=== PATIENT | female | born 1960 | race Caucasian/White ===

== ENCOUNTER 2017-04-03 16:43 | Inpatient (IN) | payer SELFPAY ==
--- NOTE | ~2017-04-03 | HP ---
History And Physical [id number] [place]. [address] NAME: MICKEY SHIN : 64 STATUS : ADM IN [facility]#: [id number] AGE: 56 ADM/REG DATE : 04/03/17 MR#: [id number] REPORT SERV DATE: 04/04/17 DICTATED BY: CLAY HOLT DATE: 04/03/17 REPORT STATUS : Draft TRANSCRIBED BY: YUNG DATE: 04/03/17 DATE OF ADMISSION: 04/03/2017 The patient's primary care is Hema Evans; dental laboratory assistant, Dr. Marquez. HISTORY OF PRESENT ILLNESS: This is a 56-year-old female with a history of CAD and strong family history of strokes and heart disease and also a personal history of smoking that has come in with a two-week history of intermittent chest pain and then yesterday evening began feeling ill having myalgias and arthralgias and fatigue, laid on the couch, and then about 10 o'clock in the evening broke into a sweat. She became diaphoretic and short of breath. Also, mentioned and was experiencing chest tightness and went to bed around 11 o'clock still having some chest tightness and diaphoresis. Noticed that her left foot was numb. When she awoke this morning, she noticed the left side of her face was numb along with the left foot and then when she walked into the restroom and looked herself in the mirror she noticed left facial droop. She had about five to six of these episodes and they lasted about 15 to 20 minutes each. Here in the emergency room, symptoms have mostly resolved except for some disorganized and delayed cognition. She has already had a CT of the brain which is negative for any infarct or hemorrhage. She has also had an EKG performed which showed no signs of ischemia and troponin is negative here as well. Neurology, Rosemary Oneill, has already seen the patient here in the emergency room. Here in the emergency room, she was administered a nitroglycerin paste and Solu-Medrol 125 mg x1. PAST MEDICAL HISTORY: [place]; CAD, stents x2; COPD, tobacco abuse; hypertension; hypothyroid; IBS; and GERD. PAST SURGICAL HISTORY: Cardiac stents, total hysterectomy, bladder suspension, cholecystectomy, tubal ligation, and carpal tunnel release. HOME MEDICATIONS: Synthroid, Lopressor, Norvasc, losartan and HCTZ, Topamax, aspirin, Ultram, potassium chloride, Prilosec, Zantac, Benadryl, Zyrtec, ibuprofen, and Tylenol. SOCIAL HISTORY: The patient is single. Three children, smoker, smokes about half a pack per day. 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 No alcohol use. No illicit drug use. FAMILY HISTORY: Mother of CVA at age 79. Sisters had TIAs. Father at age 49 of a heart attack. REVIEW OF SYSTEMS: 14-point system reviewed with the patient and was all systems negative except for what was previously mentioned. PHYSICAL EXAMINATION: VITAL SIGNS: Blood pressure 117/65, heart rate 69, respirations 18, O2 sats 96% on room air. GENERAL: The patient is a little disheveled and disorganized, but in no acute distress. NEURO: Alert and oriented x3. 3/5 strength to left lower extremity. No facial droop noted. No slurred speech noted. A little bit of delay in her cognition and memory. She has History And Physical [address] [address] NAME: MICKEY SHIN : 64 STATUS : ADM IN [facility]#: [id number] AGE: 56 ADM/REG DATE : 04/03/17 MR#: [id number] REPORT SERV DATE: 04/04/17 DICTATED BY: CLAY HOLT DATE: 04/03/17 REPORT STATUS : Draft TRANSCRIBED BY: YUNG DATE: 04/03/17 altered sensation all as well to the left upper extremity and left lower extremity. CARDIOVASCULAR: Regular rate and rhythm. No murmurs auscultated. LUNGS: Clear to auscultation bilaterally. ABDOMEN: Soft, nontender. Active bowel sounds. EXTREMITIES: No edema. LABORATORY DATA: Sodium 143, potassium 3.3, chloride 109, CO2 of 25, BUN 28, creatinine 1.12, glucose 89. White blood cells 5.4, hemoglobin 12.0, hematocrit 34.2, platelets 210. Troponin less than 0.02. EKG: Normal sinus rhythm. No ST changes. UA within normal limits. Chest x-ray, stable apical bullae. No acute findings. CT of the brain, no infarct or hemorrhage seen. ASSESSMENT AND PLAN: 1. Transient ischemic attack versus cerebrovascular accident. Neurology has already seen the patient and has ordered MRI of the brain, MRA of the neck, carotid ultrasound, and echocardiogram with bubble study. Aspirin, statin, and Plavix. 2. Chest pain. The patient has had intermittent chest pain x2 weeks. Has a history of coronary artery disease with stents and is seen by Dr. Marquez, outpatient. We will order serial troponins and EKG and consult Dr. Marquez. 3. Hypokalemia. Potassium is 3.3. We will replace per protocol. 4. Tobacco abuse. Nicotine patch. Spent 50 minutes discussing smoking cessation. 5. Hypothyroid. Continue home Synthroid. 6. Hypertension. Blood pressures are currently okay. Hold ARB and HCTZ. Continue home beta lexie and Norvasc. 7. Chronic obstructive pulmonary disease. The patient on no home medications for chronic obstructive pulmonary disease. We will place the patient on bronchodilator protocol. 8. Gastroesophageal reflux disease. Continue home proton pump inhibitor. TDR/MODL Clay Holt APN / [id number] CC: Kolton Mckeon M.D. TORO EVANS II, YONY, [facility] Jayson Marquez M.D.
--- NOTE | ~2017-04-03 | CN ---
Consultation Report [facility] [address] [place]. [address] NAME: MICKEY SHIN : 64 STATUS : ADM IN [facility]#: [id number] AGE: 56 ADM/REG DATE : 04/03/17 MR#: [id number] REPORT SERV DATE: 04/04/17 DICTATED BY: NOEMY TIM DATE: 04/03/17 REPORT STATUS : Draft TRANSCRIBED BY: YUNG DATE: 04/03/17 CARDIOLOGY CONSULTATION NOTE DATE OF CONSULTATION: 04/03/2017 HISTORY OF PRESENT ILLNESS: This 56-year-old white female smoker was admitted with left- sided weakness, which has gradually improved today. Workup for stroke was in progress. She also complains of episodes of chest pain lasting hours at a time, but her troponin and EKG are both normal today. 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 FAMILY HISTORY: Positive for heart disease. She lives with a boyfriend and has three children, one of which has had bypass grafting. She is intolerant to NGUYỄN inhibitors. PREVIOUS OPERATIONS: Include bladder surgery, cholecystectomy, carpal tunnel surgery, intracoronary stenting, hysterectomy, and a bilateral tubal ligation. She unfortunately does smoke with a history of COPD and also has GERD episodes. LABORATORY DATA: So far include a BUN of 28 and creatinine 1.12. Troponin is less than 0.02. White blood cell count 5.4 thousand, hematocrit 34%, platelet count 210,000. Chest x-ray shows some apical hyperaeration and CT of the brain showed nothing acute with MRI studies pending. She has a history of hypothyroidism on replacement therapy. MEDICATIONS: Include Tylenol, Norvasc, aspirin, Zyrtec, Benadryl, Advil, thyroid replacement with Synthroid, Hyzaar, Lopressor, nitroglycerin p.r.n., potassium, Zantac, Topamax, and Ultram. REVIEW OF SYSTEMS: Otherwise all are negative. PHYSICAL EXAMINATION: VITAL SIGNS: Blood pressure is 140/80 tonight. HEENT: Head is normocephalic. Eyes, PERRLA. Nose has no epistaxis. SKIN: Clear of ulceration. NECK: Supple. CHEST: Clear. HEART: Has regular rhythm. Normal S1 and S2. No murmurs, gallops, or pericardial friction rubs. ABDOMEN: Benign. Nontender. She is overweight. EXTREMITIES: Has no clubbing, edema, or cyanosis. NEUROLOGIC: Reveals no definite weakness, although she says that she feels weak on the left Consultation Report [id number] [place]. [address] NAME: MICKEY SHIN : 64 STATUS : ADM IN PAT#: [id number] AGE: 56 ADM/REG DATE : 04/03/17 MR#: [id number] REPORT SERV DATE: 04/04/17 DICTATED BY: NOEMY TIM DATE: 04/03/17 REPORT STATUS : Draft TRANSCRIBED BY: YUNG DATE: 04/03/17 side and was more symptomatic earlier in the day. She is oriented to time, place, and person. CLNICAL IMPRESSION: 1. History of possible cerebral ischemic event-workup in progress. 2. Chest pain-very atypical for ischemic heart disease. 3. Coronary artery disease with previous stenting procedures. 4. Tobacco abuse with chronic obstructive pulmonary disease. 5. Hypothyroidism. 6. Gastroesophageal reflux disease. 7. History of hypertension. RECOMMENDATIONS: 1. We will check serial EKGs and troponins. 2. Workup for stroke was in progress. 3. We will obtain an echocardiogram. 4. Dr. Marquez will continue to follow her when he returns to call. YAMEL/YUNG Noemy Tim M.D. / [id number] CC: Linda TillmanTORO MARY
--- NOTE | ~2017-04-03 | CN ---
Consultation Report [facility] [address] [place]. [address] NAME: MICKEY SHIN : 64 STATUS : ADM IN [facility]#: [id number] AGE: 56 ADM/REG DATE : 04/03/17 MR#: [id number] REPORT SERV DATE: 04/03/17 DICTATED BY: ROSEMARY KING DATE: 04/03/17 REPORT STATUS : Draft TRANSCRIBED BY: YUNG DATE: 04/03/17 NEUROLOGY CONSULTATION DATE OF CONSULTATION: 04/03/2017 REASON FOR CONSULTATION: TIA versus stroke. HOSPITALIST: ( ) HISTORY OF PRESENT ILLNESS: The patient is a 56-year-old female, who mentioned that she "felt bad all day yesterday." She had myalgias, arthralgias, and fatigue. She laid on the couch most of the day and watched movies. However, about 10 o'clock yesterday evening, she broke out into a sweat. She was very diaphoretic and short of breath. She also mentioned that she had chest tightness. She denied any nausea, vomiting, or outright chest pain. However, she mentioned this is the same type of feeling she had prior to her stent placement several years ago. She decided to go to bed at approximately 11 o'clock. She was not diaphoretic at that time, but she still had some chest tightness. She noticed that her left foot was numb, this was unusual, she had never felt this before, although she had had paresthesia as a side effect from her Topamax therapy. Her left foot was numb, not her leg, and her right foot was not numb. She got up in the morning and noticed that the left side of her face was numb along with her left foot. She walked into the bathroom and looked in the mirror, and she noticed she had a facial droop on the left side. She thought that maybe if she moved around, it would go away. She called her sister, and her sister noticed that her speech was slurred. After 15-20 minutes, her symptoms resolved completely. Throughout the day, her symptoms would appear and last approximately 15-20 minutes. This happened five to six times throughout the day. She finally decided to come to the emergency department for further evaluation and treatment. PAST MEDICAL HISTORY: Inferior wall AR, COPD, tobacco abuse, hypertension, hypothyroidism, irritable bowel syndrome, GERD, and obesity. PAST SURGICAL HISTORY: Status post drug-eluting stent x2 to the LAD, total abdominal hysterectomy with BSO, bladder suspension, cholecystectomy, tubal ligation, and tarsal tunnel release on the left. MEDICATIONS: Home medication list is with the patient, please refer to the chart. ALLERGIES: NGUYỄN INHIBITORS. SOCIAL HISTORY: The patient is single. She has three children. 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 She is a smoker. Does not drink alcohol or use illicit drugs. FAMILY HISTORY: The patient's mother at the age of 79 from a stroke, she had COPD and peripheral vascular disease. Her father at the age of 49, he had tuberculosis, he Consultation Report [address] [address] NAME: MICKEY SHIN : 64 STATUS : ADM IN [facility]#: [id number] AGE: 56 ADM/REG DATE : 04/03/17 MR#: [id number] REPORT SERV DATE: 04/03/17 DICTATED BY: ROSEMARY KING DATE: 04/03/17 REPORT STATUS : Draft TRANSCRIBED BY: YUNG DATE: 04/03/17 abused alcohol and from an AR. She has one sister who has had several TIAs. REVIEW OF SYSTEMS: For positive pertinents, please refer to the HPI. PHYSICAL EXAMINATION: VITAL SIGNS: The patient is a 56-year-old female, who is afebrile. Heart rate 62, respiratory rate 16, O2 sats on room air 97%, blood pressure 169/85. NEURO: The patient is alert. She is oriented x3. She seems to be a little distracted and disorganized at times. She will follow simple commands. Speech is relatively clear. No aphasia. Language is fluent. Pupils are 3 mm, PERRLA. Cranial nerves 2 through 12 are intact, except the patient reports diminished sensation on the left side of her face in all three trigeminal regions. [id number]-[id number], no ataxia. There is no pronator drift. There is no asterixis, dysmetria, tremor, or dysdiadochokinesis. Upper extremity strength is a 5/5 bilaterally. The patient did report diminished sensation on the left side when compared to the right. Upper DTRs 2+ bilaterally. Lower extremity strength is a 3/5 on the left and a 5/5 on the right. Patellar DTRs were 3+ bilaterally. Downgoing toes bilaterally. Reported diminished sensation on the left when compared to the right. LABORATORY DATA: CBC is normal. BMP shows a potassium of 3.3, creatinine 1.12. NIH Stroke Scale is a total of 2. CT of the brain, no acute changes. ASSESSMENT/PLAN: 1. Stuttering transient ischemic attack, possible stroke. At this point, the patient's aspirin will be decreased to 81 mg, Plavix 75 mg will be added, and she will be placed on Lipitor 80 mg q.h.s. PT/OT and Speech Therapy will be consulted. Case Management will be consulted for possible rehab placement. The patient will have an MRI of the brain without gadolinium and an MRA of the head and neck. She will undergo an echocardiogram with bubble study. Risk factor reduction was discussed with the patient, particularly smoking cessation. 2. History of coronary artery disease. The patient did complain of chest tightness and shortness of breath. Serial troponins are being checked. She had a normal EKG. 3. Cigarette abuse. Again, smoking cessation was discussed with the patient. Thank you again for including us in consultation, we will continue to follow with you. OFE/YUNG Rosemary King DNP, [facility]- / [id number] CC: Consultation Report [address] [address] NAME: MICKEY SHIN : 64 STATUS : ADM IN [facility]#: [id number] AGE: 56 ADM/REG DATE : 04/03/17 MR#: [id number] REPORT SERV DATE: 04/03/17 DICTATED BY: ROSEMARY KING DATE: 04/03/17 REPORT STATUS : Draft TRANSCRIBED BY: YUNG DATE: 04/03/17 Linda Tillman M.D.
--- NOTE | ~2017-04-03 | DS ---
Discharge Summary [facility] [address] [place]. [address] NAME: MICKEY SHIN : 64 STATUS : DIS IN PAT#: [id number] AGE: 56 ADM/REG DATE : 04/03/17 MR#: [id number] REPORT SERV DATE: 04/07/17 DICTATED BY: CLAY HOLT DATE: 04/06/17 REPORT STATUS : Draft TRANSCRIBED BY: MODFarzaneh DATE: 04/06/17 ADMISSION DATE: 04/03/2017 DISCHARGE DATE: 04/05/2017 REASON FOR ADMISSION: This is a 56-year-old female with a history of CAD, a strong family history of strokes and heart disease, and a personal history of smoking. 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 DISCHARGE DIAGNOSES: 1. Transient ischemic attack. 2. Coronary artery disease, status post stents. 3. Tobacco abuse. 4. Hypothyroid. 5. Hypertension. 6. Atypical chest pain, noncardiac related. HOSPITAL COURSE: 1. TIA. The patient was seen by Neurology, Rosemary Oneill. The patient's CT scan in the emergency room was negative for CVA. The patient would have additional imaging MRI of the brain, which would show few minimal foci of chronic scoliosis in the supratentorial white matter. No acute infarct. No acute findings. Next, the patient would have a CTA of brain and neck, which would show intracranial CTA and brachiocephalic demonstrating mild atherosclerotic change of the carotid arteries, category 1. No evidence of acute infarct or bleed. The patient would also have an echocardiogram with bubble study, which would show normal left ventricular systolic function with the EF 55%, mildly dilated left atrium, normal right ventricular chamber size and systolic function. No evidence of valvular regurgitation or stenosis. No evidence of atrial septal defect or patent foramina ovale. Also, no sign of thrombus. The patient was placed on aspirin, Plavix, and statin by Neurology. The patient's left-sided weakness and left facial droop had resolve when she had arrived back to the ER. Did not have any more recurrences while at the hospital. She was seen by Physical Therapy and cleared to go home. Next, Case Management would help the patient obtain medications as she has no insurance. 2. CAD, status post stents with atypical chest pain. Cardiology, Dr. Marquez would see the patient while she was here at the hospital. The patient had negative troponin x3 and EKG did not show any ischemic changes. There had been a discussion about Cardiology implanting a loop recorder. However, the patient does not have any insurance and so, she would not be able to receive adequate followup on the device and therefore was not inserted. DISCHARGE MEDICATIONS: 1. Synthroid 88 mcg p.o. daily. 2. Metoprolol 25 mg p.o. b.i.d. 3. Norvasc 5 mg p.o. daily. 4. Losartan/HCTZ 100/25 mg one tablet daily. Discharge Summary [address] [address] NAME: MICKEY SHIN : 64 STATUS : DIS IN PAT#: [id number] AGE: 56 ADM/REG DATE : 04/03/17 MR#: [id number] REPORT SERV DATE: 04/07/17 DICTATED BY: CLAY HOLT DATE: 04/06/17 REPORT STATUS : Draft TRANSCRIBED BY: YUNG DATE: 04/06/17 5. Topamax 50 mg p.o. at bedtime. 6. Nitroglycerin p.r.n. 7. Tramadol p.r.n. 8. Potassium chloride 10 mEq p.o. daily. 9. Omeprazole 40 mg p.o. daily. 10.Ranitidine 150 mg one to two capsules at bedtime. 11.Benadryl p.r.n. sleep. 12.Zyrtec 10 mg p.o. daily. 13.Aspirin 81 mg p.o. daily. 14.Lipitor 40 mg p.o. at bedtime. 15.Plavix 75 mg p.o. daily. Smoking cessation was discussed with the patient multiple times during hospitalization. DISCHARGE PLAN: The patient is discharged home and follow up at [facility] for primary followup in one to two weeks. Home medications have been arranged by Case Management, charitied from hospital for one-month supply. SUZANNE/YUNG Clay Holt APN / [id number] CC: Linda Tillman Ralph Edward II Mark Thel, M.D.
[2017-04-03 14:32] LABS: WBC (NOT ORDERED) (RFLEX) 0 (0-5)
[2017-04-03 14:37] LABS: BASOPHILS 0.2 %; BASOPHILS ABSOLUTE 0.01 10/3/uL (0.0-0.16); EOSINOPHILS 1.7 %; EOSINOPHILS ABSOLUTE 0.09 10/3/uL (0.0-0.53); ER CBC TAT 0 Hrs 09 MinsN; HEMATOCRIT 34.2 % (36.0-48.0); IMMATURE GRANULOCYTES 0.2 %; IMMATURE GRANULOCYTES ABSOLUTE 0.01 10/3/uL (0.0-0.11); LYMPHOCYTES 39.1 %; LYMPHOCYTES ABSOLUTE 2.12 10/3/uL (0.67-4.30); MANUAL DIFF NO %; MEAN CORPUS HGB CONC 35.1 g/dL (32.0-36.0); MEAN CORPUSCULAR HEMOGLOB 31.1 pg (26.0-34.0); MEAN CORPUSCULAR VOLUME 88.6 fL (80-100); MEAN PLATELET VOLUME 10.4 fL (9.2-13.0); MONOCYTES 6.8 %; MONOCYTES ABSOLUTE 0.37 10/3/uL (0.21-1.20); NEUTROPHILS ABSOLUTE 2.82 10/3/uL (2.02-8.40); PLATELET COUNT 210 10/3/uL (150-400); RBC DISTRIBUTION WIDTH 12.7 % (12.0-16.0); RED CELL COUNT 3.86 10/6/uL (4.0-5.6); WHITE BLOOD CELLS 5.4 10/3/uL (4.5-10.5)
[2017-04-03 14:45] LABS: ASCORBIC ACID (UR NOT ORDER) NEG (NEG); BILIRUBIN, URINE NEGATIVE (NEG); ER URINALYSIS TAT 0 Hrs 14 Mins; KETONE, URINE NEGATIVE (NEG); LEUKOCYTE ESTERASE(NOT OR NEG (NEG); NITRITE (URINE) NEG (NEG)
[2017-04-03 14:45] LABS: INTERNATIONAL NORMAL RATI 1.1 UNITS (-); PARTIAL THROMBO TIME 27.2 SEC (22.5-37.2); PROTIME (NOT ORD) 13.8 SEC (12.0-14.5)
[2017-04-03 14:55] LABS: CHEST PAIN PROFILE TAT 0 Hrs 27 Mins; CHLORIDE, SERUM 109 MMOL/L (96-112); CO2 (CARBON DIOXIDE) 25 MMOL/L (24-34); CREATININE 1.12 MG/DL (0.55-1.02); GFR AFRICAN AMERICAN 64 ML/MIN (>=60); GFR NON AFRICAN AMERICAN 56 ML/MIN (>=60); GLUCOSE, SERUM 89 MG/DL (60-99); POTASSIUM, SERUM 3.3 MMOL/L (3.5-5.3); SODIUM, SERUM 143 MMOL/L (135-148); TROPONIN I <0.02 NG/ML (<0.05)
[2017-04-03 14:56] LABS: BUN (BLOOD UREA NITROGEN) 28 MG/DL (6-23)
[~2017-04-03 16:43] MED LIST: ACET500CAP PO; ASA5GR PO; ATV.5 PO; BENTYL10 PO; BUPROBAN150 MG PO; COREG25 PO; DIOVAN320 MG PO; ESTRACE1 MG PO; FIORICET PO; FISH OIL1200 MG PO; FISH-EPA1000 MG PO; GOODY'S HEADAC1 EACH PO; HYZAAR 100/25 T1 TAB PO; HYZAAR 50/12.51 TAB PO; LEVOTHYROXIN75 MCG PO; LEXAPRO20 PO; LIPITOR40 PO; LOM PO; LOP25 PO; NASONEX NAS; NIACIN 500 PO; NITROSTAT0.4 MG SL; NORV5 PO; PLAVIX PO; PROTONIX PO; PROVHFA INH; RANITIDINE300 MG PO; SYN075 PO; ULTRAM50 PO; WELLSR150 PO; ZANTAC150 MG PO; ZESTORETIC PO; ZOCOR40 PO; ZYRTEC ALLGY10 MG PO
[2017-04-03] MEDS ORDERED: LOP25 PO (18:04)
[2017-04-03] MEDS ORDERED: NORV5 PO (18:04)
[2017-04-03] MEDS ORDERED: SYN88 PO (18:04)
[2017-04-03] MEDS ORDERED: HYZAAR 100/25 T1 TAB PO (18:04)
[2017-04-03] MEDS ORDERED: ASA5GR PO ×2 (18:05→18:12)
[2017-04-03] MEDS ORDERED: NITROQUICK0.4 MG SL (18:05)
[2017-04-03] MEDS ORDERED: TOPAMAX50 MG PO (18:05)
[2017-04-03] MEDS ORDERED: KLOR-CON M1010 MEQ PO (18:06)
[2017-04-03] MEDS ORDERED: ULTRAM50 PO (18:06)
[2017-04-03] MEDS ORDERED: ZANTAC150 MG PO (18:07)
[2017-04-03] MEDS ORDERED: PRILOSEC40 MG PO (18:07)
[2017-04-03] MEDS ORDERED: BEN25 PO (18:07)
[2017-04-03] MEDS ORDERED: ZYRTEC ALLGY10 MG PO (18:08)
[2017-04-03] MEDS ORDERED: HYDROCORTISONE 1% TOP (18:09)
[2017-04-03] MEDS ORDERED: ACET500CAP PO (18:11)
[2017-04-03] MEDS ORDERED: ADVIL PO (18:11)
[2017-04-03 21:12] LABS: CHOL/HDL RATIO(NOT ORDER) 6.7 (0-5); CHOLESTEROL 315 MG/DL (< 200); FOLATE 7.9 NG/ML (>5.2); FREE T4 0.98 NG/DL (0.76-1.46); HDL CHOLESTEROL 47 MG/DL (> 49); LDL CHOLESTEROL 203 MG/DL (< 130); NON-HDL CHOLESTEROL 268 MG/DL (< 160); TRIGLYCERIDE 328 MG/DL (< 150)
[2017-04-03 22:22] LABS: CPK 49 U/L (0-200); TROPONIN I <0.02 NG/ML (<0.05)
[2017-04-03 22:23] LABS: CK-MB 1.1 NG/ML
[2017-04-04 06:52] LABS: CPK 47 U/L (0-200); TROPONIN I <0.02 NG/ML (<0.05)
[2017-04-04 06:56] LABS: CK-MB 1.1 NG/ML
[2017-04-04 13:34] LABS: CPK 52 U/L (0-200); TROPONIN I <0.02 NG/ML (<0.05)
[2017-04-04 13:35] LABS: CK-MB 1.2 NG/ML
[2017-04-04 14:03] LABS: PROTIME (NOT ORD) 13.5 SEC (12.0-14.5)
[2017-04-05 07:09] LABS: BASOPHILS 0.3 %; BASOPHILS ABSOLUTE 0.02 10/3/uL (0.0-0.16); EOSINOPHILS 0.9 %; EOSINOPHILS ABSOLUTE 0.06 10/3/uL (0.0-0.53); HEMATOCRIT 33.5 % (36.0-48.0); IMMATURE GRANULOCYTES 0.2 %; IMMATURE GRANULOCYTES ABSOLUTE 0.01 10/3/uL (0.0-0.11); LYMPHOCYTES 41.2 %; LYMPHOCYTES ABSOLUTE 2.61 10/3/uL (0.67-4.30); MEAN CORPUS HGB CONC 35.8 g/dL (32.0-36.0); MEAN CORPUSCULAR HEMOGLOB 31.2 pg (26.0-34.0); MONOCYTES 5.7 %; MONOCYTES ABSOLUTE 0.36 10/3/uL (0.21-1.20); NEUTROPHILS 51.7 %; NEUTROPHILS ABSOLUTE 3.27 10/3/uL (2.02-8.40); PLATELET COUNT 178 10/3/uL (150-400); RBC DISTRIBUTION WIDTH 12.8 % (12.0-16.0); RED CELL COUNT 3.85 10/6/uL (4.0-5.6); WHITE BLOOD CELLS 6.3 10/3/uL (4.5-10.5)
[2017-04-05 07:10] LABS: MANUAL DIFF NO %
[2017-04-05 07:17] LABS: BUN (BLOOD UREA NITROGEN) 28 MG/DL (6-23); CALCIUM, SERUM 8.7 MG/DL (8.5-10.4); CHLORIDE, SERUM 111 MMOL/L (96-112); CO2 (CARBON DIOXIDE) 23 MMOL/L (24-34); CREATININE 0.83 MG/DL (0.55-1.02); GFR AFRICAN AMERICAN 93 ML/MIN (>=60); GFR NON AFRICAN AMERICAN 80 ML/MIN (>=60); GLUCOSE, SERUM 95 MG/DL (60-99); POTASSIUM, SERUM 3.2 MMOL/L (3.5-5.3); SODIUM, SERUM 142 MMOL/L (135-148)
[2017-04-05] MEDS ORDERED: HABIT21 TOP (15:16)
[2017-04-05] MEDS ORDERED: LIPITOR40 PO (15:17)
[2017-04-05] MEDS ORDERED: ASAB PO (15:17)
[2017-04-05] MEDS ORDERED: PLAVIX PO (15:18)
== END 2017-04-05 18:06 | disposition home or self-care (01) | DRG 69 ==
LOC: ER 16:43 → 1SO 17:15
PROVIDERS: Emergency Medicine; Internal Medicine Cardiovascular Disease; Nurse Practitioner
DX: G45.9 Transient cerebral ischemic attack, unspecified (principal); R13.10 Dysphagia, unspecified; I10 Essential (primary) hypertension; I25.10 Atherosclerotic heart disease of native coronary artery without angina pectoris; E03.9 Hypothyroidism, unspecified; R29.702 NIHSS score 2; E87.6 Hypokalemia; R29.810 Facial weakness; R07.89 Other chest pain; J44.9 Chronic obstructive pulmonary disease, unspecified; K21.9 Gastro-esophageal reflux disease without esophagitis; K58.9 Irritable bowel syndrome, unspecified; R47.1 Dysarthria and anarthria; F17.210 Nicotine dependence, cigarettes, uncomplicated; Z79.82 Long term (current) use of aspirin; Z79.899 Other long term (current) drug therapy; I25.2 Old myocardial infarction; Z98.61 Coronary angioplasty status; Z88.8 Allergy status to other drugs, medicaments and biological substances
CPT/HCPCS: 70450; 70496; 70498; 70551-52; 71010; 80048; 80061; 81001; 82140; 82533; 82550; 82553; 82607; 82746; 82962; 83735; 84132; 84439; 84443; 84484; 85025; 85610; 85730; 92523-GN; 93005; 93306; 96374; 97161-GP; 97165-GO; 99285; A9270-GY; G8978-CJ-GP; G8979-CI-GP; G8987-CI-GO; G8988-CI-GO; G8989-CI-GO; J2405; J2930; Q9967